=== PATIENT | female | born 1985 | race Caucasian/White ===

== ENCOUNTER 2017-08-05 11:41 | Emergency (ER) | payer SELFPAY ==
[2017-08-05 11:49] VITALS: BP 130/76; PULSE 90; TEMP 98.7; BMI 32.3
[2017-08-05] MEDS ORDERED: ALBUTEROL SO4 0.083% IH SOL 2.5 MG/3 ML VIAL.NEB. NEB ONE ×2 (12:36→12:39)
--- NOTE | 2017-08-05 13:02 | PDOC ---
History of Present Illness - General Chief Complaint: Cold Symptoms Stated Complaint: COUGH Time Seen by Provider: 08/05/17 12:21 History Source: Patient Exam Limitations: No Limitations - History of Present Illness Initial Comments: 08/05/17 13:01 32 yr female with c/o cough and nasal congestion for one week no fever no chills. Pt has no medical history or allergies. Pt is occasional cigarette smoker. Pt denies sick contacts, no recent travel. Past History - Past Medical History Allergies/Adverse Reactions: Allergies Allergy/AdvReac Type Severity Reaction Status Date / Time No Known Allergies Allergy Verified 08/05/17 11:49 Home Medications: Ambulatory Orders Albuterol Sulfate Inhaler - [Ventolin HFA Inhaler -] 1 - 2 inh PO Q4H #1 inhaler 08/05/17 Benzonatate [Tessalon Pearls -] 200 mg PO TID PRN #42 cap 08/05/17 - Psycho/Social/Smoking Cessation Hx Anxiety: Yes Suicidal Ideation: No Smoking History: Current some day smoker Have you smoked in the past 12 months: Yes Number of Cigarettes Smoked Daily: 2 Information on smoking cessation initiated: No Hx Alcohol Use: Yes (SOCIAL) Drug/Substance Use Hx: No Substance Use Type: None Respiratory Specific PMHX - Complaint Specific PMHX Bronchitis: No Pneumonia: No *Physical Exam - Vital Signs Last Vital Signs Temp Pulse Resp BP Pulse Ox 98.7 F 90 18 130/76 98 08/05/17 11:46 08/05/17 11:46 08/05/17 11:46 08/05/17 11:46 08/05/17 11:46 - Physical Exam General Appearance: Yes: Nourished, Appropriately Dressed HEENT: positive: EOMI, ARVIND, Normal ENT Inspection, TMs Normal, Pharynx Normal Neck: positive: Supple. negative: Tender Respiratory/Chest: positive: Lungs Clear, Normal Breath Sounds. negative: Crackles, Rales, Rhonchi, Wheezing Cardiovascular: positive: Regular Rhythm, Regular Rate Gastrointestinal/Abdominal: positive: Normal Bowel Sounds, Soft Musculoskeletal: positive: Normal Inspection Extremity: positive: Normal Capillary Refill, Normal Inspection, Normal Range of Motion Integumentary: positive: Normal Color, Dry, Warm Neurologic: positive: Fully Oriented, Alert, Normal Mood/Affect, Normal Response , Motor Strength 5/5 ED Treatment Course - Medications Given in the ED: ED Medications Discontinued Medications Generic Name Dose Route Start Last Admin Trade Name Frannie PRN Reason Stop Dose Admin Albuterol Sulfate 1 amp 08/05/17 12:36 08/05/17 12:42 Ventolin 0.083% Nebulizer Soln - NEB 08/05/17 12:37 1 amp ONCE ONE Administration Medical Decision Making - Medical Decision Making 08/05/17 13:03 cc: cough for one week no fever , neg cp or sob will give albuterol for cough , pt has productive cough light white color sputum pt is speaking full sentences no distress *DC/Admit/Observation/Transfer Diagnosis at time of Disposition: Bronchitis - Discharge Dispostion Disposition: HOME Condition at time of disposition: Good - Prescriptions Prescriptions: Benzonatate [Tessalon Pearls -] 200 mg PO TID PRN #42 cap PRN Reason: Cough Albuterol Sulfate Inhaler - [Ventolin HFA Inhaler -] 1 - 2 inh PO Q4H #1 inhaler - Patient Instructions Printed Discharge Instructions: DI for Acute Bronchitis Additional Instructions: drink pleanty of fluids take the medication as prescribed avoid any smoking please follow with your doctor in 1-2 days for follow up Return if any worsening symptoms - Post Discharge Activity Work/School Note: Back to Work
== END 2017-08-05 13:11 | disposition home or self-care (01) ==
LOC: JERFT 11:41
PROC: 3E0F7GC Introduction of Other Therapeutic Substance into Respiratory Tract, Via Natural or Artificial Opening (ICD-10-PCS; principal; 2017-08-05)
DX: J40 Bronchitis, not specified as acute or chronic (principal)
CPT/HCPCS: 99281-25

== ENCOUNTER 2019-06-22 08:48 | Emergency (ER) | payer SELFPAY ==
[2019-06-22 08:54] VITALS: BP 102/65; PULSE 84; TEMP 98.4; BMI 36.8
[2019-06-22] MEDS ORDERED: diphenhydrAMINE HCL 25 MG CAPSULE (FP) PO ONE ×2 (09:49→09:51)
[2019-06-22 10:07] LABS: BASO % 1.2 % (0-2.0); EOS % 4.9 % (0-4.5); HEMATOCRIT 40.9 % (32.4-45.2); HEMOGLOBIN 13.7 GM/dL (10.7-15.3); LYMPH % 35.4 % (8-40); MCH 27.8 pg (25.7-33.7); MCHC 33.5 g/dl (32.0-36.0); MEAN CELL VOLUME 82.9 fl (80-96); MEAN PLT VOLUME 8.4 fl (7.5-11.1); MONO % 5.2 % (3.8-10.2); NEUT % 53.3 % (42.8-82.8); PLATELET COUNT 334 K/MM3 (134-434); RBC 4.93 M/mm3 (3.60-5.2); RDW 14.6 % (11.6-15.6); WHITE BLOOD COUNT 8.3 K/mm3 (4.0-10.0)
[2019-06-22 10:30] LABS: BLOOD UREA NITROGEN 19.9 mg/dL (7-18); CALCIUM 9.5 mg/dL (8.5-10.1); CREATININE 0.9 mg/dL (0.55-1.3); POTASSIUM 4.4 mmol/L (3.5-5.1)
--- NOTE | 2019-06-22 10:47 | PDOC ---
Documentation entered by Lyssa Lockwood SCRIBE, acting as scribe for Ángel Ruiz MD. Ángel Ruiz MD: This documentation has been prepared by the Mandie shane Brenda, SCRIBE, under my direction and personally reviewed by me in its entirety. I confirm that the documentation accurately reflects all work, treatment, procedures, and medical decision making performed by me. History of Present Illness - General Chief Complaint: Wound Stated Complaint: CELLULITIS due to INSECT BITE Time Seen by Provider: 06/22/19 09:25 History Source: Patient Exam Limitations: No Limitations - History of Present Illness Initial Comments: 06/22/19 10:29 The patient is a 33 year old female, with no significant PMH, who presents to the emergency department with 4 days of progressively worsening right ankle swelling. As per patient, she reports being in her car at which time she suspects she may have gotten bitten by an insect, when she began to notice small welts on her calf and notes that it became bigger overtime. She reports that it feels like needles sticking her calf and that it is itchy upon touch. She denies any pain but notes it to be discomfort. She states trying hydrocortisone, to no relief. She also notes that she usually gets a bigger reaction out of bug bites than others, but notes that this was more persistent and significant, prompting her arrival to the ED. The patient denies shortness of breath, headache and dizziness. Denies fever, chills, nausea, vomiting, diarrhea and constipation. Denies any urinary symptoms. Denies any other symptoms. Allergies: NKA Past surgical history: Denies any surgical history. Social history: Denies history of DVT. Current someday smoker. Denies drug use. PCP: Dr. Charlee Varela Past History - Past Medical History Allergies/Adverse Reactions: Allergies Allergy/AdvReac Type Severity Reaction Status Date / Time No Known Allergies Allergy Verified 08/05/17 11:49 Home Medications: Ambulatory Orders Cephalexin Monohydrate [Keflex -] 500 mg PO Q6H #20 capsule 06/22/19 Hydrocortisone 1% Cream [Hytone 1% Cream -] 1 applic TP BID #1 tube 06/22/19 COPD: No - Immunization History Immunization Up to Date: No - Suicide/Smoking/Psychosocial Hx Smoking History: Current some day smoker Have you smoked in the past 12 months: No Number of Cigarettes Smoked Daily: 2 Information on smoking cessation initiated: No Hx Alcohol Use: No Drug/Substance Use Hx: No Substance Use Type: None Review of Systems - Review of Systems Able to Perform ROS?: Yes Comments:: 06/22/19 10:30 Constitutional - Pt denies Fever, Chills, weakness, HEENT: denies vision changes, sore throat Respiratory: Denies cough, sob, hemoptysis Cardiac: denies chest pain, palpitations, light headedness, leg swelling Abd/GI: denies abd pain, nausea, vomiting, blood per rectum, melena, diarrhea : denies dysuria, frequency, discharge Musculskelatal - (+) Right calf swelling. (+) right calf discomfort and itchiness. denies back pain. skin - denies bruising, erythema, rash neurological: denies headache, numbness, focal weakness, tingling, ataxia, weakness hematologic: denies anemia, easy bruising, easy bleeding *Physical Exam - Vital Signs Last Vital Signs Temp Pulse Resp BP Pulse Ox 98.4 F 84 18 102/65 100 06/22/19 08:52 06/22/19 08:52 06/22/19 08:52 06/22/19 08:52 06/22/19 08:52 - Physical Exam Comments: 06/22/19 09:47 GENERAL: The patient is awake, alert, and fully oriented, Nontoxic - in no acute distress. HEAD: Normocephalic, atraumatic. EYES: extraocular movements intact, sclera anicteric, conjunctiva clear. ENT: Normal voice, Moist mucous membranes. NECK: Normal range of motion, supple LUNGS: Breath sounds equal, clear to auscultation bilaterally. No wheezes, no rhonchi, no rales. HEART: Regular rate and rhythm, normal S1 and S2 without murmur, rub or gallop. ABDOMEN: Soft, nontender, No guarding, no rebound. No CVA tenderness EXTREMITIES: mild induration/ttp to the R calf without significant warmth/ fluctuance, +several overlying vesiclar lesions NEUROLOGICAL: No facial assymetry, Normal speech, PSYCH: Normal mood, normal affect. SKIN: Warm, Dry, normal turgor, ED Treatment Course - LABORATORY CBC & Chemistry Diagram: 06/22/19 09:58 06/22/19 09:58 Medical Decision Making - Medical Decision Making 06/22/19 09:48 suspect inflammatory response from possible insect bite with mild cellulitis/ suprainfection will obtain blood work bedside US show some cobbelstoning will robert avila for itching 06/22/19 10:41 the patient's labs are reviewed there are no remarkable. we will give the patient Keflex for suspected cellulitis Will have the patient follow-up with Dr. Varela for reevaluation return precautions were discussed I discussed the physical exam findings, ancillary test results and final diagnoses with the patient. I answered all of the patient's questions. The patient was satisfied with the care received and felt comfortable with the discharge plan and treatment plan. The patient will call their primary care physician within 24 hours to arrange follow-up and will return to the Emergency Department with any new, persistent or worsening symptoms. *DC/Admit/Observation/Transfer Diagnosis at time of Disposition: Cellulitis of right leg - Discharge Dispostion Disposition: HOME Condition at time of disposition: Improved Decision to Admit order: No - Prescriptions Prescriptions: Cephalexin Monohydrate [Keflex -] 500 mg PO Q6H #20 capsule Hydrocortisone 1% Cream [Hytone 1% Cream -] 1 applic TP BID #1 tube - Referrals Referrals: Mitch Varela MD [Primary Care Provider] - - Patient Instructions Printed Discharge Instructions: DI for Cellulitis -- Adult Additional Instructions: Return to the emergency department immediately with ANY new, persistent or worsening symptoms including any fevers, chills, worsening redness or increased pain. Take Tylenol or Motrin as needed for pain. Take the antibiotics as prescribed. You MUST call and follow up with your doctor in 3-4 days for further evaluation of your symptoms. Results were discussed with you. Please make sure your doctor reviews the results of your emergency evaluation. Your Emergency Department visit is not complete without a follow up with your doctor. Print Language: SWISS - Post Discharge Activity Forms/Work/School Notes: Back to Work
== END 2019-06-22 10:47 | disposition home or self-care (01) ==
LOC: JER 08:48
PROC: BH48ZZZ Ultrasonography of Lower Extremity (ICD-10-PCS; principal; 2019-06-22)
DX: L03.115 Cellulitis of right lower limb (principal)
CPT/HCPCS: 36415; 80048; 82550; 85025; 99282-25